=== PATIENT | female | born 1980 | race Asian ===

== ENCOUNTER 2019-11-04 02:45 | Inpatient (IN) | payer OTHER ==
[~2019-11-04] VITALS: Ht 160 cm; Wt 77.7 kg
[2019-11-04] MEDS ORDERED: LACTATED RINGERS 1,000 ML IV PRN (03:01)
[2019-11-04] MEDS ORDERED: MAGNESIUM SULF. PMX 20GM/500ML 500 ML IV SCH ×2 (03:01→03:59)
[2019-11-04 03:35] LABS: MEAN CORPUSCULAR HEMOGLOBIN 25.9 pg (27.0-34.8); MEAN CORPUSCULAR HGB CONC 31.9 g/dL (32.4-35.8); MEAN CORPUSCULAR VOLUME 81.2 fL (80-100); MEAN PLATELET VOLUME 8.2 fL (7.4-10.4); PLATELET COUNT 367 x10^3/uL (130-400); RED CELL DISTRIBUTION WIDTH 18.5 % (9.6-15.2)
[2019-11-04 03:40] LABS: ALANINE AMINOTRANSFERASE 15 U/L (12-78); ALBUMIN 2.2 g/dL (3.4-5.0); ANION GAP 8 mmol/L (5-15); CHLORIDE 109 mmol/L (98-107); CREATININE 0.76 mg/dL (0.55-1.02)
[2019-11-04 03:44] LABS: ALKALINE PHOSPHATASE 133 U/L (45-117); BILIRUBIN,TOTAL 0.5 mg/dL (0.2-1.0); TOTAL PROTEIN 6.2 g/dL (6.4-8.2)
[2019-11-04 03:47] LABS: MD YES
[2019-11-04 03:48] LABS: ANISOCYTOSIS 1+; LYMPH#(MANUAL) 1.06 x10^3/uL (1-3.4); LYMPHS% (MANUAL) 9 % (22-44); METAMYELOCYTES# (MANUAL) 0.12 x10^3/uL (0-0); METAMYELOCYTES% (MANUAL) 1 % (0-1); MONOS#(MANUAL) 0.47 x10^3/uL (0.3-2.7); MONOS% (MANUAL) 4 % (2-9); POLYCHROMASIA 1+; SEG#(MANUAL) 10.15 x10^3/uL (1.8-6.8); SEGS% (MANUAL) 86 % (42-75)
[2019-11-04 03:49] LABS: <PLATELET ESTIMATE> ADEQUATE; <PLT MORPHOLOGY> NORMAL PLT MORPH
[2019-11-04 03:56] LABS: CREATININE,URINE RANDOM 31.6 mg/dL
[2019-11-04] MEDS ORDERED: CALCIUM GLUCONATE 4.6 MEQ/10 ML IV PRN (04:00)
[2019-11-04] MEDS ORDERED: MAGNESIUM SULF. PMX 20GM/500ML 500 ML IV ONE ×3 (04:02→21:03)
[2019-11-04 04:21] VITALS: BP 142/85
[2019-11-04 05:19] VITALS: BP 149/93
[2019-11-04] MEDS: AMPICILLIN 2 GM in SODIUM CHLORIDE 0.9% 100 ML IVPB SCH ×2 (06:06→12:07)
[2019-11-04] MEDS ORDERED: ONDANSETRON 2MG/ML, 2ML ONE ×3 (07:04→20:53)
[2019-11-04] MEDS ORDERED: D5%-LACTATED RINGERS 1,000 ML IV SCH (09:00)
[2019-11-04] MEDS ORDERED: METOCLOPRAMIDE 5 MG/ML, 2ML IV ONE (11:30)
[2019-11-04] MEDS ORDERED: SODIUM CITRATE/CITRIC ACID 30 ML UDC PO ONE (11:30)
[2019-11-04] MEDS ORDERED: SODIUM CITRATE/CITRIC ACID 30 ML UDC ONE (12:10)
[2019-11-04] MEDS ORDERED: METOCLOPRAMIDE 5 MG/ML, 2ML ONE (12:10)
[2019-11-04] MEDS ORDERED: NEWBORN KIT ONE (12:33)
[2019-11-04 15:22] LABS: BASOPHILS # (AUTO) 0.01 x10^3/uL (0-0.1); BASOPHILS % (AUTO) 0 % (0-1); EOSINOPHILS # (AUTO) 0.25 x10^3/uL (0-0.4); EOSINOPHILS % (AUTO) 2 % (1-7); LYMPHOCYTES # (AUTO) 0.96 x10^3/uL (1-3.4); LYMPHOCYTES % (AUTO) 9 % (22-44); MD NO; MEAN CORPUSCULAR HEMOGLOBIN 25.8 pg (27.0-34.8); MEAN CORPUSCULAR HGB CONC 31.9 g/dL (32.4-35.8); MEAN PLATELET VOLUME 8.3 fL (7.4-10.4); MONOCYTES # (AUTO) 0.87 x10^3/uL (0.2-0.8); MONOCYTES % (AUTO) 8 % (2-9); NEUTROPHILS # (AUTO) 9.19 x10^3/uL (1.8-6.8); NEUTROPHILS % (AUTO) 81 % (42-75); PLATELET COUNT 349 x10^3/uL (130-400); RED BLOOD COUNT 3.91 x10^6/uL (3.82-5.3); RED CELL DISTRIBUTION WIDTH 19.1 % (9.6-15.2)
[2019-11-04] MEDS ORDERED: AZITHROMYCIN 500 MG in SODIUM CHLORIDE 0.9% 250 ML IV ONE (15:30)
[2019-11-04 15:31] LABS: ANION GAP 7 mmol/L (5-15); CALCIUM 6.8 mg/dL (8.5-10.1); CHLORIDE 105 mmol/L (98-107)
[2019-11-04 15:37] LABS: ALANINE AMINOTRANSFERASE 16 U/L (12-78); ALKALINE PHOSPHATASE 132 U/L (45-117); BILIRUBIN,TOTAL 0.4 mg/dL (0.2-1.0); CREATININE 0.66 mg/dL (0.55-1.02)
[2019-11-04] MEDS ORDERED: EPINEPHRINE 1 MG/ML, 1ML ONE (15:56)
[2019-11-04] MEDS ORDERED: morphine SULFATE/PF 0.5 MG/ML, 10ML ONE (15:57)
[2019-11-04] MEDS ORDERED: WATER-INJECTION,STERILE 10 ML IV ONE (16:02)
[2019-11-04] MEDS ORDERED: OXYTOCIN 10 UNITS/ML, 1ML ONE (16:02)
[2019-11-04] MEDS ORDERED: EPHEDRINE 50 MG/ML, 1ML ONE (16:02)
[2019-11-04] MEDS ORDERED: CEFAZOLIN 1,000 MG ONE (16:02)
[2019-11-04] MEDS ORDERED: PHENYLEPHRINE 10 MG/ML ONE (16:02)
[2019-11-04] MEDS ORDERED: TRANEXAMIC ACID 100 MG/ML, 10ML ONE (18:18)
[2019-11-04] MEDS ORDERED: GLYCOPYRROLATE 0.2MG/1ML, 5ML ONE (18:57)
[2019-11-04] MEDS ORDERED: LACTATED RINGERS 1,000 ML IV SCH (19:08)
[2019-11-04] MEDS: OXYTOCIN 30U/ 0.9% NaCL 500ML 500 ML IV SCH (19:08)
[2019-11-04] MEDS ORDERED: MISOPROSTOL 200 MCG TABLET PR PRN (19:30)
[2019-11-04] MEDS ORDERED: ACETAMINOPHEN 325 MG TABLET PO PRN ×2 (19:30)
[2019-11-04] MEDS ORDERED: ONDANSETRON 2MG/ML, 2ML IV PRN ×2 (19:30→20:00)
[2019-11-04] MEDS ORDERED: morphine SULFATE 10 MG/ML, 1ML IV PRN (19:30)
[2019-11-04] MEDS ORDERED: CARBOPROST TROMETHAMINE 250 MCG/ML, 1ML IM PRN (19:30)
[2019-11-04] MEDS ORDERED: OXYTOCIN 30U/ 0.9% NaCL 500ML 500 ML ONE (19:39)
[2019-11-04] MEDS ORDERED: OXYcodone 5 MG/5 ML ORAL.SOL UDC ONE (19:39)
[2019-11-04] MEDS: OXYcodone 5 MG/5 ML ORAL.SOL UDC PO PRN (19:44)
[2019-11-04 20:07] LABS: MEAN CORPUSCULAR HGB CONC 31.9 g/dL (32.4-35.8); MEAN CORPUSCULAR VOLUME 81.6 fL (80-100); MEAN PLATELET VOLUME 7.9 fL (7.4-10.4); PLATELET COUNT 280 x10^3/uL (130-400); RED BLOOD COUNT 3.34 x10^6/uL (3.82-5.3); RED CELL DISTRIBUTION WIDTH 18.8 % (9.6-15.2)
[2019-11-04 20:22] LABS: ALANINE AMINOTRANSFERASE 10 U/L (12-78); ALBUMIN 1.6 g/dL (3.4-5.0); ANION GAP 8 mmol/L (5-15); CALCIUM 6.5 mg/dL (8.5-10.1); CHLORIDE 107 mmol/L (98-107); CREATININE 0.72 mg/dL (0.55-1.02)
[2019-11-04 20:24] LABS: ALKALINE PHOSPHATASE 112 U/L (45-117); BILIRUBIN,TOTAL 0.3 mg/dL (0.2-1.0); TOTAL PROTEIN 4.9 g/dL (6.4-8.2)
[2019-11-04] MEDS: LACTATED RINGERS 1,000 ML IV SCH (20:36)
[2019-11-04] MEDS ORDERED: morphine SULFATE 10 MG/ML, 1ML ONE (20:53)
[2019-11-04] MEDS: MAGNESIUM SULF. PMX 20GM/500ML 500 ML IV SCH (21:15)
[2019-11-04] MEDS ORDERED: AZITHROMYCIN 500 MG in SODIUM CHLORIDE 0.9% 250 ML IV SCH (23:00)
[2019-11-05] MEDS ORDERED: MAGNESIUM SULF. PMX 20GM/500ML 500 ML IV SCH ×2 (03:59)
[2019-11-05] MEDS: OXYTOCIN 30U/ 0.9% NaCL 500ML 500 ML IV SCH ×2 (05:08→15:08)
[2019-11-05] MEDS: LACTATED RINGERS 1,000 ML IV SCH ×2 (05:08→15:08)
[2019-11-05 05:32] LABS: BASOPHILS # (AUTO) 0.01 x10^3/uL (0-0.1); BASOPHILS % (AUTO) 0 % (0-1); EOSINOPHILS # (AUTO) 0.24 x10^3/uL (0-0.4); EOSINOPHILS % (AUTO) 2 % (1-7); LYMPHOCYTES # (AUTO) 0.94 x10^3/uL (1-3.4); LYMPHOCYTES % (AUTO) 8 % (22-44); MD NO; MEAN CORPUSCULAR HEMOGLOBIN 25.7 pg (27.0-34.8); MEAN CORPUSCULAR HGB CONC 31.6 g/dL (32.4-35.8); MEAN CORPUSCULAR VOLUME 81.2 fL (80-100); MEAN PLATELET VOLUME 7.6 fL (7.4-10.4); MONOCYTES # (AUTO) 0.95 x10^3/uL (0.2-0.8); MONOCYTES % (AUTO) 8 % (2-9); NEUTROPHILS # (AUTO) 10.17 x10^3/uL (1.8-6.8); NEUTROPHILS % (AUTO) 83 % (42-75); PLATELET COUNT 252 x10^3/uL (130-400); RED BLOOD COUNT 3.12 x10^6/uL (3.82-5.3); RED CELL DISTRIBUTION WIDTH 18.8 % (9.6-15.2)
[2019-11-05 05:46] LABS: CHLORIDE 103 mmol/L (98-107)
[2019-11-05 05:55] LABS: ALANINE AMINOTRANSFERASE 14 U/L (12-78); ALBUMIN 1.5 g/dL (3.4-5.0); ALKALINE PHOSPHATASE 104 U/L (45-117); ANION GAP 7 mmol/L (5-15); BILIRUBIN,TOTAL 0.4 mg/dL (0.2-1.0); CALCIUM 6.4 mg/dL (8.5-10.1); CREATININE 0.67 mg/dL (0.55-1.02); TOTAL PROTEIN 4.7 g/dL (6.4-8.2)
[2019-11-05] MEDS ORDERED: OXYcodone/APAP 5/325MG TABLET ONE ×3 (05:58→18:58)
[2019-11-05] MEDS: OXYcodone/APAP 5/325MG TABLET PO PRN ×3 (06:00→23:01)
[2019-11-05] MEDS: PRENATAL VIT/IRON/FA 1 EACH TABLET PO SCH (09:00)
[2019-11-05] MEDS ORDERED: OXYcodone 5 MG/5 ML ORAL.SOL UDC ONE ×2 (10:10→16:23)
[2019-11-05] MEDS ORDERED: DOCUSATE 100 MG CAPSULE ONE (10:11)
[2019-11-05] MEDS ORDERED: MAGNESIUM SULF. PMX 20GM/500ML 500 ML IV ONE (10:11)
[2019-11-05] MEDS: MAGNESIUM SULF. PMX 20GM/500ML 500 ML IV SCH (10:15)
[2019-11-05] MEDS: OXYcodone 5 MG/5 ML ORAL.SOL UDC PO PRN ×2 (10:16→16:26)
[2019-11-05 19:45] VITALS: BP 134/79
[2019-11-05 23:54] VITALS: BP 131/75
[2019-11-06] MEDS: LACTATED RINGERS 1,000 ML IV SCH (01:08)
[2019-11-06] MEDS: OXYTOCIN 30U/ 0.9% NaCL 500ML 500 ML IV SCH (01:08)
[2019-11-06 04:30] VITALS: BP 138/83
[2019-11-06] MEDS: OXYcodone/APAP 5/325MG TABLET PO PRN ×3 (04:38→18:13)
[2019-11-06] MEDS: PRENATAL VIT/IRON/FA 1 EACH TABLET PO SCH (09:45)
[2019-11-06] MEDS: DOCUSATE 100 MG CAPSULE PO PRN ×2 (09:46→19:48)
[2019-11-06 09:48] VITALS: BP 137/89
[2019-11-06 12:18] VITALS: BP 149/92
[2019-11-06 19:10] VITALS: BP 147/85
[2019-11-06] MEDS: SIMETHICONE 80 MG CHEW TAB PO PRN (19:48)
[2019-11-06] MEDS: OXYcodone IR 5MG TABLET PO PRN (19:49)
[2019-11-07 00:20] VITALS: BP 164/95
[2019-11-07] MEDS: OXYcodone IR 5MG TABLET PO PRN ×2 (00:37→05:03)
[2019-11-07 02:30] VITALS: BP 116/71
[2019-11-07 05:10] VITALS: BP 132/73
[2019-11-07 07:22] LABS: ALANINE AMINOTRANSFERASE 13 U/L (12-78); ALBUMIN 1.9 g/dL (3.4-5.0); ANION GAP 5 mmol/L (5-15); CALCIUM 8.5 mg/dL (8.5-10.1); CHLORIDE 107 mmol/L (98-107); CREATININE 0.52 mg/dL (0.55-1.02)
[2019-11-07 07:25] LABS: ALKALINE PHOSPHATASE 112 U/L (45-117); BILIRUBIN,TOTAL 0.5 mg/dL (0.2-1.0); TOTAL PROTEIN 6.2 g/dL (6.4-8.2)
[2019-11-07] MEDS: FERROUS GLUCONATE 324 MG TABLET PO SCH (08:33)
[2019-11-07] MEDS: DOCUSATE 100 MG CAPSULE PO PRN ×2 (08:33→19:44)
[2019-11-07] MEDS: PRENATAL VIT/IRON/FA 1 EACH TABLET PO SCH (08:34)
[2019-11-07 09:14] VITALS: BP 148/88
[2019-11-07] MEDS: OXYcodone/APAP 5/325MG TABLET PO PRN ×2 (13:32→19:45)
[2019-11-07] MEDS: SIMETHICONE 80 MG CHEW TAB PO PRN (19:44)
[2019-11-07 20:00] VITALS: BP 129/85
[2019-11-08 00:07] VITALS: BP 130/86
[2019-11-08] MEDS: OXYcodone/APAP 5/325MG TABLET PO PRN ×2 (00:12→16:18)
[2019-11-08 04:11] VITALS: BP 146/82
[2019-11-08] MEDS: FERROUS GLUCONATE 324 MG TABLET PO SCH (08:46)
[2019-11-08] MEDS: PRENATAL VIT/IRON/FA 1 EACH TABLET PO SCH (08:46)
[2019-11-08] MEDS: DOCUSATE 100 MG CAPSULE PO PRN (08:46)
[2019-11-08] MEDS: OXYcodone IR 5MG TABLET PO PRN (08:48)
[2019-11-08 09:09] VITALS: BP 130/88
[2019-11-08 16:00] VITALS: BP 137/90
[2019-11-08] MEDS ORDERED: BISACODYL 10 MG SUPP ONE (16:16)
[2019-11-08] MEDS ORDERED: BISACODYL 10 MG SUPP PR PRN (16:30)
[2019-11-08] MEDS ORDERED: OXYC-302 PO (18:23)
[2019-11-08] MEDS ORDERED: FERR324T18 PO (18:24)
== END 2019-11-08 18:00 | disposition home or self-care (01) | DRG 786 ==
LOC: LDIP 02:45 → 2NW 11-05 19:35
PROVIDERS: ADMIT Obstetrics & Gynecology Maternal & Fetal Medicine; ATTEND Obstetrics & Gynecology Maternal & Fetal Medicine
PROC: 10D00Z1 Extraction of Products of Conception, Low, Open Approach (ICD-10-PCS; principal; 2019-11-04)
DX: O42.013 Preterm premature rupture of membranes, onset of labor within 24 hours of rupture, third trimester (principal); O60.14X1 Preterm labor third trimester with preterm delivery third trimester, fetus 1; O60.14X2 Preterm labor third trimester with preterm delivery third trimester, fetus 2; D62 Acute posthemorrhagic anemia; O40.2XX2 Polyhydramnios, second trimester, fetus 2; O14.94 Unspecified pre-eclampsia, complicating childbirth; O43.213 Placenta accreta, third trimester; O30.043 Twin pregnancy, dichorionic/diamniotic, third trimester; Z37.2 Twins, both liveborn; O32.1XX1 Maternal care for breech presentation, fetus 1; O32.2XX2 Maternal care for transverse and oblique lie, fetus 2; O69.81X2 Labor and delivery complicated by cord around neck, without compression, fetus 2; O90.81 Anemia of the puerperium; Z3A.32 32 weeks gestation of pregnancy
CPT/HCPCS: 36415; J7121; 80053; 82570; 82803; 83615; 83735; 84156; 84550; 85025; 85027; 86592; 86850; 86900; 87340; 88307; G0378; J0171; J0290; J0456; J0690; J2274; J2405; J2270; J2370; J2590; J2765; J3475; J7050; J7120